=== PATIENT | male | born 1955 | race Caucasian/White ===

== ENCOUNTER 2016-03-26 05:47 | Inpatient (IN) | payer OTHER ==
[~2016-03-26] VITALS: Ht 177.8 cm; Wt 62.3 kg
[~2016-03-26 05:47] MED LIST: ALTACE10 MG PO; ASCORBIC ACID500 M3 PO; CALTRATE 600 +1 EAC1 PO; CELEXA40 MG PO; CITALOPRAM HBR40 MG PO; CLONIDINE HCL0.1 MG PO; CO Q-10100 MG PO; COQ-10100 MG PO; CYANOCOBALAM1000 MCG PO; DOK PLUS TABLE1 EACH PO; DURAGESIC50 MCG TD; FENTANYL1 EAC1 TD; FISH OIL 1,0001 EAC7 PO; FLEXERIL10 MG PO; FOLIC ACID1 MG PO; LOVENOX40 MG/0.4 SC; METOPROLOL TART25 MG PO; MULTIVITAMIN1 EAC2 PO; NORVASC2.5 MG PO; OMEGA 3; OXYCODONE HCL10 MG PO; OXYCODONE-APAP1 EACH PO; PERCOCET 10/1 TABLET PO; RAMIPRIL10 MG PO; RAMIPRIL5 MG PO; ROXICODONE5 MG PO; XANAX0.5 MG PO
[2016-03-26 06:36] LABS: HEMATOCRIT 35.8 % (38.0-50.0); MCH 31.3 PG (29.0-34.0); MCHC 35.5 G/DL (30.0-36.0); MCV 88.2 FL (86-99); MEAN PLAT.VOLUME 8.6 uM^3 (9.0-12.4); PLATELET COUNT 208 K/uL (156-360); RBC DIS.WIDTH-CV 14.1 % (11.8-14.6); RBC DIS.WIDTH-SD 44.7 % (39-53); RED BLOOD COUNT 4.06 M/uL (4.00-5.50)
[2016-03-26 06:53] LABS: CHLORIDE 103 mEq/L (99-109); POTASSIUM 4.1 mEq/L (3.7-5.4); SODIUM 137 mEq/L (136-147)
[2016-03-26 06:54] LABS: GLUCOSE 78 mg/dL (70-99)
[2016-03-26 06:56] LABS: ANION GAP 8 MEQ/L (2-14)
[2016-03-26 06:58] LABS: GFR ESTIMATE (CALCULATED) > 59 mL/min/
[2016-03-26 06:59] LABS: UREA NITROGEN (BUN) 5 mg/dL (9-23)
[2016-03-26 07:00] LABS: TROP-I INTERPRETATION NEGATIVE; TROPONIN-I 0.01 ng/mL (0.0-0.30)
[2016-03-26 07:08] LABS: TOTAL BILIRUBIN 0.5 mg/dL (0.0-1.0)
[2016-03-26 07:09] LABS: ALKALINE PHOSPHATASE 90 IU/L (3-129)
[2016-03-26 07:12] LABS: DIRECT BILIRUBIN 0.3 mg/dL (0.0-0.3)
[2016-03-26 07:13] LABS: LIPASE 12 U/L (1.0-51.0)
[2016-03-26] MEDS ORDERED: VITAMIN B12-FO1 EACH PO (07:16)
[2016-03-26] MEDS ORDERED: SEROQUEL400 MG PO (07:17)
[2016-03-26] MEDS ORDERED: TRAZODONE HCL100 MG PO (07:17)
[2016-03-26] MEDS ORDERED: PROZAC20 MG PO (07:17)
[2016-03-26] MEDS ORDERED: LO-DOSE ASPIRIN81 M2 PO (09:19)
[2016-03-26] MEDS ORDERED: CYANOCOBALAM1000 MCG PO (09:19)
[2016-03-26 12:40] LABS: INTERNAL CONTROL VALID? YES
[2016-03-26 13:16] LABS: TROP-I INTERPRETATION NEGATIVE; TROPONIN-I < 0.01 ng/mL (0.0-0.30)
[2016-03-26 14:13] VITALS: BP 157/105
[2016-03-26 18:50] LABS: MCV 90.2 FL (86-99)
[2016-03-26 19:12] LABS: TROP-I INTERPRETATION NEGATIVE; TROPONIN-I < 0.01 ng/mL (0.0-0.30)
[2016-03-26 19:38] VITALS: BP 159/102
[2016-03-27 00:26] VITALS: BP 114/65
[2016-03-27 07:56] VITALS: BP 120/84
[2016-03-27 08:40] LABS: HEMATOCRIT 33.4 % (38.0-50.0); MCH 31.6 PG (29.0-34.0); MCV 91.8 FL (86-99); RED BLOOD COUNT 3.64 M/uL (4.00-5.50); WHITE BLOOD COUNT 5.1 K/uL (4.1-10.2)
[2016-03-27 08:41] LABS: MCHC 34.4 G/DL (30.0-36.0); MEAN PLAT.VOLUME 9.5 uM^3 (9.0-12.4); PLATELET COUNT 148 K/uL (156-360); RBC DIS.WIDTH-CV 14.4 % (11.8-14.6); RBC DIS.WIDTH-SD 48.8 % (39-53)
[2016-03-27 08:42] LABS: INTER. NORMALIZED RATIO 1.1; PROTHROMBIN TIME 11.4 (9.2-11.2); PTT 33.4 (25-32)
[2016-03-27 08:56] LABS: ANION GAP 4 MEQ/L (2-14); CHLORIDE 104 MEQ/L (99-109); GFR ESTIMATE (CALCULATED) > 59 mL/min/; GLUCOSE 88 mg/dL (70-99); POTASSIUM 3.8 MEQ/L (3.7-5.4); SAMPLE HEMOLYSIS CHECK 0; SAMPLE ICTERIC CHECK 0; SAMPLE LIPEMIA CHECK 0; SODIUM 135 MEQ/L (136-147); UREA NITROGEN (BUN) 4 mg/dL (9-23)
== END 2016-03-27 11:17 | disposition home or self-care (01) | DRG 378 ==
LOC: EME 05:47 → EDOF 08:46 → 5SOUTH 14:01
PROVIDERS: Emergency Medicine; Internal Medicine
DX: K92.0 Hematemesis (principal); F11.20 Opioid dependence, uncomplicated; K92.1 Melena; F17.210 Nicotine dependence, cigarettes, uncomplicated; I10 Essential (primary) hypertension; F03.90 Unspecified dementia, unspecified severity, without behavioral disturbance, psychotic disturbance, mood disturbance, and anxiety; F10.20 Alcohol dependence, uncomplicated; G89.29 Other chronic pain
CPT/HCPCS: 71020; 74176; 80048; 80076; 82272; 83690; 83880; 84484; 85014; 85018; 85027; 85610; 85730; 93005; 99202; 99281; 99285; C9113; J2270; J3411; J7030

== ENCOUNTER 2016-05-30 19:52 | Emergency (ER) | payer OTHER ==
[~2016-05-30] VITALS: Ht 175.3 cm; Wt 69.1 kg
[~2016-05-30 19:52] MED LIST changes: +LO-DOSE ASPIRIN81 M2 PO; +PROZAC20 MG PO; +SEROQUEL400 MG PO; +TRAZODONE HCL100 MG PO; +VITAMIN B12-FO1 EACH PO
[2016-05-30 20:41] LABS: HEMATOCRIT 40.1 % (38.0-50.0); MCH 30.5 PG (29.0-34.0); MCHC 34.4 G/DL (30.0-36.0); MCV 88.5 FL (86-99); MEAN PLAT.VOLUME 9.1 uM^3 (9.0-12.4); PLATELET COUNT 144 K/uL (156-360); RBC DIS.WIDTH-CV 13.5 % (11.8-14.6); RBC DIS.WIDTH-SD 44.3 % (39-53); RED BLOOD COUNT 4.53 M/uL (4.00-5.50); WHITE BLOOD COUNT 6.3 K/uL (4.1-10.2)
[2016-05-30 20:59] LABS: CHLORIDE 98 mEq/L (99-109); SODIUM 131 mEq/L (136-147)
[2016-05-30 21:02] LABS: GLUCOSE 85 mg/dL (70-99)
[2016-05-30 21:03] LABS: ANION GAP 10 MEQ/L (2-14)
[2016-05-30 21:04] LABS: TOTAL BILIRUBIN 0.6 mg/dL (0.0-1.0)
[2016-05-30 21:05] LABS: ALKALINE PHOSPHATASE 73 IU/L (3-129); GFR ESTIMATE (CALCULATED) > 59 mL/min/
[2016-05-30 21:07] LABS: UREA NITROGEN (BUN) 4 mg/dL (9-23)
[2016-05-30 21:09] LABS: LIPASE 29 U/L (1.0-51.0)
[2016-05-30 22:47] LABS: ADD MIUA? YES; BILIRUBIN NEGATIVE; BLOOD SMALL; COLOR STRAW ((YELLOW)); GLUCOSE (STRIP) NEGATIVE; KETONES NEGATIVE; LEUKOCYTES NEGATIVE; NITRITE NEGATIVE; PROTEIN (STRIP) NEGATIVE; SPECIFIC GRAVITY 1.003 (1.000-1.030); UROBILINOGEN 0.2 MG/DL (0.2-1.0)
[2016-05-30 22:54] LABS: BACTERIA RARE /HPF; EPITHELIAL CELLS NONE SEEN /HPF; MUCUS NONE SEEN /LPF; RED BLOOD CELLS 0-5 /HPF (0-5); UCUL ADDED? NO; WHITE BLOOD CELLS 0-5 /HPF (0-5)
[2016-05-31 00:28] VITALS: BP 131/89
== END 2016-05-31 00:27 | disposition home or self-care (01) ==
LOC: EME 19:52
DX: K59.00 Constipation, unspecified (principal); S40.012A Contusion of left shoulder, initial encounter; W19.XXXA Unspecified fall, initial encounter; I10 Essential (primary) hypertension; G89.29 Other chronic pain; F17.200 Nicotine dependence, unspecified, uncomplicated
CPT/HCPCS: 71020; 74176; 80053; 81003; 83690; 85027; 99281; 99284; J7030